=== PATIENT | female | born 1995 | race African-American/Black ===

== ENCOUNTER 2021-05-22 20:15 | Emergency (ER) | payer SELFPAY ==
[~2021-05-22] VITALS: Ht 167.6 cm; Wt 137.0 kg
[2021-05-22] MEDS ORDERED: ONDANSETRON HCL 4 MG ORAL DISINTEGRATING TAB PO ONE (21:00)
[2021-05-22] MEDS ORDERED: KETOROLAC TROMETHAMINE 60 MG/2 ML VIAL IM ONE (21:00)
[2021-05-22] MEDS ORDERED: ONDANSETRON HCL 4 MG ORAL DISINTEGRATING TAB ONE ×2 (21:07→21:13)
[2021-05-22] MEDS ORDERED: KETOROLAC TROMETHAMINE 60 MG/2 ML VIAL ONE (21:07)
[2021-05-22] MEDS ORDERED: ESGIC 50-325-41 EACH PO (21:35)
[2021-05-22] MEDS ORDERED: AZITHROMYCIN250 MG PO (21:35)
[2021-05-22] MEDS ORDERED: ONDANSETRON ODT4 MG PO (21:35)
[2021-05-22 22:02] VITALS: BP 155/97
== END 2021-05-22 21:54 | disposition home or self-care (01) ==
LOC: FSED 20:50
DX: R05.9 Cough, unspecified (principal); J06.9 Acute upper respiratory infection, unspecified; Z20.822 Contact with and (suspected) exposure to COVID-19; Z71.89 Other specified counseling
CPT/HCPCS: 81003; 87400; 96372; 99283; J1885; Q0162